=== PATIENT | male | born 1995 | race Caucasian/White ===

== ENCOUNTER 2023-10-22 21:24 | Inpatient (IN) | payer OTHER, SELFPAY ==
[2023-10-22] VITALS (8 sets, daily range): BP systolic 101–123; BP diastolic 64–78; BMI 26.5
--- NOTE | 2023-10-22 13:23 | ED.GENMED ---
History of Present Illness
General
Chief Complaint: Post Operative Problem(s)
Time Seen by Provider: 10/22/23 13:16
Travel History
Have you had any contact with someone who has COVID-19?: No
Do you have any symptoms of coronavirus? Fever > 100 degrees, chills, cough, shortness of breath, sore throat, loss of taste or smell, muscle aches, or headache?: No
History of Present Illness
History of Present Illness:
28-year-old male presents to the emergency department for evaluation of left hip pain. 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
done at [facility]. In early August he began to have hardware migration from the knee and, as he was residing in [facility], established care with an Orthopedist at [facility]. Had initial surgery in August to remove and replace hardware in the knee by
Dr Helm. 1-2 weeks post operatively he developed severe L hip pain and was diagnosed with a post operative infection of both the knee and the hip, and 2 weeks ago underwent complete revision of the L femur prosthesis. He is living locally with
his mom while he undergoes rehab, over the past 3 to 4 days noted increasing pain to where he could no longer bear weight on the left lower extremity. States he has intense pain even with subtle movement of the left hip. No fevers or chills.
Review of Systems
Review of Systems
Allergies reviewed?: Yes
All Other Systems: ROS reviewed and negative except as documented in HPI and ROS
Phy Exam
Physical Exam
Physical Exam:
GEN: Well appearing, NAD, WDWN
HEENT: Oral mucosa moist, no scleral icterus
Cardiac: Tachycardic, regular
Lung: No respiratory distress, no tachypnea
MSK: Left hip incision site is clean and dry with no purulent discharge. There is diffuse swelling about the left hip and excruciating pain to any degree of passive range of motion. There is mild swelling of the left knee, surgical site is clean
and dry with no discharge. No erythema. No pain with range of motion of the left knee
Skin: Good color, no pallor or jaundice, no rashes
Neuro: AO x3, moves all extremities freely
Psych: Calm, cooperative
Course
Orders/Labs/Results
Orders:
Orders
10/22/23 13:23
CR Hip - LT w/wo Pel 2-3 Vw* Urgent
Comment:
Reason For Exam: post operative pain
Include a pelvis x-ray?: No
10/22/23 13:25
Blood Culture Q30M
YOBANI Source: Blood/Venous
Specimen Description:
10/22/23 13:30
HYDROmorphone [Dilaudid] 1 mg .ROUTE .STK-MED ONE
HYDROmorphone [Dilaudid] 1 mg IV NOW STA
10/22/23 13:41
CRP [C-Reactive Protein] Urgent
Complete Blood Count/With Diff Urgent
Comprehensive Metabolic Panel Urgent
ESR [Erythrocyte Sed Rate] Urgent
Lactic Acid Q4H
Comment: CANCEL 2nd LACTIC ACID IF 1st LACTIC ACID IS LESS THAN 2
Blood Culture Q30M
YOBANI Source: Blood/Venous
Specimen Description:
10/22/23 14:06
HYDROmorphone [Dilaudid] 1 mg IV NOW STA
10/22/23 15:30
IRAD CONSULT Urgent
Consulting Provider: Vladimir Bower
Was physician already notified: Yes
Reason for Consult/Procedure: L hip aspiration
Acknowledgement that appropriate orders are entered: Yes
10/22/23 15:44
HYDROmorphone [Dilaudid] 1 mg IV NOW STA
10/22/23 16:42
Lidocaine 2% [Xylocaine 2% Mdv] 20 ml .ROUTE .STK-MED ONE
10/22/23 17:05
Body Fluid Cell Count Urgent
What is the Body Fluid: joint
Date Specimen was Collected: 10/22/23
Time Specimen was Collected: 17:10
Comment: with DIFF, left hip
Fluid Culture with Gram Stain Urgent
YOBANI Source: Joint Fluid
Specimen Description:
Date Specimen was Collected: 10/22/23
Time Specimen was Collected: 17:10
Comment: Left hip
10/22/23 18:05
HYDROmorphone [Dilaudid] 1 mg IV NOW STA
10/22/23 19:55
Piperacillin/Tazo 3.375 Gram [Zosyn] 3.375 gram in 50 ml IV NOW
10/22/23 20:00
VANCOMYCIN Pharmacy to Dose [VANCOCIN Pharmacy to Dose] 1 each Pharmacy To Prepare [Call Pharmacy To Prepare] 0 ml IV PER PROTOCOL
10/22/23 20:34
Vancomycin [Vancocin] 1,750 mg 0.9% Sodium Chloride 500 ml [Nss] 500 ml IV NOW
Abnormal Lab Results
10/22/23
13:41
RBC 3.82 L 10^6/uL
(4.70-6.10)
Hgb 11.2 L g/dL
(13.0-18.0)
Hct 35.2 L %
(39.0-52.0)
MCHC 31.8 L g/dL
(33.0-37.0)
Plt Count 553 H 10^3/uL
(130-400)
Absolute Neuts (auto) 7.6 H 10^3/uL
(1.4-6.5)
Neutrophils % 79.9 H %
(42.2-75.2)
Lymphocytes % 12.4 L %
(20.5-51.1)
ESR 91 H mm/hour
(0-20)
Glucose 106 H mg/dl
(70-99)
ALT 89 H U/L
(0-50)
Alkaline Phosphatase 155 H U/L
(38-126)
C-Reactive Protein 153.20 H mg/L
(0.0-10.00)
10/22/23 13:41
10/22/23 13:41
Vital Signs
Initial and Last Documented VS:
Initial Vital Signs
Pulse Resp BP Pulse Ox
106 22 107/75 100
10/22/23 13:17 10/22/23 13:17 10/22/23 13:17 10/22/23 13:17
Last Documented Vital Signs
Temp Pulse Resp BP Pulse Ox
98.8 F 112 23 112/78 99
10/22/23 16:10 10/22/23 20:15 10/22/23 20:15 10/22/23 20:13 10/22/23 20:15
MDM/Problems Addressed
MDM/Problems Addressed:
28-year-old male presents with severe left hip pain. Recently underwent revision of left femur replacement that was initially done as a child for Castillo sarcoma. Clinical exam concerning for infected hip given severe pain with passive range of
motion. He is not clinically septic and has no elevated white count on labs however inflammatory markers are markedly elevated. Patient was sent for interventional radiology consultation for hip aspiration which yielded 12 cc of cloudy fluid,
fluid analysis revealed a white cell count of 32,000 with no obvious organisms seen. I discussed these findings with the orthopedic team at [facility] in [facility] and they felt that it was appropriate to keep the patient here for empiric IV
antibiotics pending culture data. The patient and family requested transfer to the the [facility], I had a phone consultation with orthopedics and orthopedic oncology at [facility] however the both service lines declined to accept this
patient in transfer. Ultimately he will be admitted to this hospital for pain control and further IV antibiotics pending fluid cultures.
*Critical Care Note
Total Time (30-74mins, 75-104mins- exclusive of procedures): Not Applicable
Update Note
Update Note:
ORTHOPEDIC TEAM AT [facility] CAN BE CONTACTED AT [phone] (MAURIZIO, HOG PUSHER for DR HELM)
ED Attending Note
-
Portions of this chart may have been created with voice recognition software.� Occasional wrong word or��sound alike� substitutions may have occurred due to the inherent limitations of voice recognition software.
Discharge Plan
Departure
Patient Disposition: Admit
Date of Disposition: 10/22/23
Time of Disposition: 20:16
Admit to: Med/Surg
Presentation/result/management discussed w/ accepting MD/DO: Hospitalist
Discharge Problem:
Infected prosthesis of left hip
Prescriptions:
No Action
cyclobenzaprine [Flexeril] 10 mg Tablet
10 mg PO BIDPRN PRN (Reason: spasms)
sennosides [senna] 8.6 mg Tablet
17.2 mg PO HSPRN PRN (Reason: constipation)
acetaminophen [Tylenol] 325 mg Tablet
650 mg PO Q6HPRN PRN (Reason: mild pain)
loperamide 2 mg Capsule
2 mg PO QIDPRN PRN (Reason: diarrhea)
minoxidil 2.5 mg Tablet
2.5 mg PO DAILY
aspirin 81 mg Tablet,Delayed Release (Dr/Ec)
81 mg PO BID
gabapentin 300 mg Capsule
300 mg PO TID
finasteride 1 mg Tablet
1 mg PO DAILY
amoxicillin-pot clavulanate [Augmentin] 875-125 mg Tablet
1 tab PO BID
Patient Comments:
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
oxycodone 5 mg Tablet
5 mg PO Q4HPRN PRN (Reason: severe pain)
escitalopram oxalate [Lexapro] 10 mg Tablet
10 mg PO DAILY
Referrals:
NONE,* [Family Provider] -
Interventions
Interventions:
*Risk Screen - Suicide Last Done: 10/22/23 13:17
*General Assessment Last Done: 10/22/23 13:17
*Neglect/Abuse Screening Last Done: 10/22/23 13:30
ED- Fall Risk Assessment Last Done: 10/22/23 13:30
*ED COVID-19 Vaccine History Last Done: 10/22/23 13:30
ED-Skin Assessment Last Done: 10/22/23 13:30
Discharge Date and Time
Print Language: FRISIAN
[2023-10-22] MEDS: DILAUDID 1 MG IV ×4 (13:35→18:16)
[2023-10-22 13:53] LABS: % Basophils 0.7 % (0-2); % Eosinophils 1.6 % (0-6); % Immature Granulocytes 0.4 % (0-0.5); % Lymphocytes 12.4 % (20.5-51.1); % Neutrophils 79.9 % (42.2-75.2); Absolute Basophils 0.1 10^3/uL (0-0.2); Absolute Eosinophils 0.2 10^3/uL (0-0.7); Absolute Lymphocytes 1.2 10^3/uL (1.2-3.4); Absolute Monocytes 0.5 10^3/uL (0.1-0.6); Absolute Neutrophils 7.6 10^3/uL (1.4-6.5); Hematocrit 35.2 % (39.0-52.0); Hemoglobin 11.2 g/dL (13.0-18.0); Mean Corp Hgb Conc. 31.8 g/dL (33.0-37.0); Mean Corpuscular Hgb 29.3 pg (27.0-31.0); Mean Corpuscular Volume 92.1 fL (80.0-94.0); Mean Platelet Volume 8.1 fL (7.4-10.4); Nucleated Red Blood Cells % 0 % (-); Platelet Count 553 10^3/uL (130-400); Red Blood Cell Count 3.82 10^6/uL (4.70-6.10); White Blood Cell Count 9.5 10^3/uL (4.8-10.8)
[2023-10-22 14:03] LABS: ALT (SGPT) 89 U/L (0-50); AST (SGOT) 47 U/L (17-59); Albumin 3.8 g/dl (3.5-5.0); Alkaline Phosphatase 155 U/L (38-126); Blood Urea Nitrogen 13 mg/dl (9-20); Calcium 9.5 mg/dl (8.4-10.2); Carbon Dioxide 25 mmol/L (22-30); Chloride 102 mmol/L (98-107); Estimated Creatinine Clearance 85 ml/min; Glucose 106 mg/dl (70-99); Potassium 4.7 mmol/L (3.5-5.1); Sodium 137 mmol/L (135-145); Total Bilirubin 0.6 mg/dl (0.2-1.3); Total Protein 7.2 g/dl (6.3-8.2); eGFR > 60.00
[2023-10-22 14:10] LABS: Lactic Acid 1.1 mmol/L (0.7-2.0)
[2023-10-22 14:55] LABS: Erythrocyte Sed Rate 91 mm/hour (0-20)
[2023-10-22 17:53] LABS: Body Fluid Mononuclear 8.6 %; Body Fluid Polymorphonuclear 91.4 %; Body Fluid WBC 32420 /CUMM
[2023-10-22 18:01] LABS: Body Fluid Second Tech EYM
[2023-10-22] MEDS: ZOSYN 50 IV (20:10)
--- NOTE | 2023-10-22 20:18 | HPS.HSE ---
Family Physician
-
Family Physician: * NONE
Chief Complaint
-
L hip pain
History of Present Illness
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
In early August, he noted a prosthesis hardware problem at the knee joint and since he was living [place] at that time, he decided to establish care with an Orthopedist at [facility] (with Dr Helm).
He had the knee prosthesis removed and replaced, but this got infection and spread to the rest of the hardware.
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 This unfortunately likely got infected again.
He c/o severe L hip pain and is no longer able to bear weight.
He is living locally with his mom while undergoing rehab.
He denies to fever/chills or other symptoms.
Medical History
Past Medical History
Past Medical History: Reports Other
Additional Past Medical History:
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
Tendon transfer surgery in distant past
Recent total left hip prosthesis hardware removal and replacement 10/2023
Past Surgical History: Reports Other
Social History
Tobacco: Non-smoker
Alcohol: Occasional
Living: With Family
Family History
Family History: Not pertinent
Allergies / Home Medications
Allergies reflects when Allergies were last updated in [facility].
Home Medications with original date entered in [facility]
Allergy/Medication List:
Allergies
Allergy/AdvReac Type Severity Reaction Status Date / Time
No Known Allergies Allergy Unverified 10/22/23 13:22
Home Medications
acetaminophen 325 mg tablet (Tylenol) 650 mg PO Q6HPRN PRN mild pain 10/22/23
amoxicillin 875 mg-potassium clavulanate 125 mg tablet 1 tab PO BID 10/22/23
aspirin 81 mg tablet,delayed release 81 mg PO BID 10/22/23
cyclobenzaprine 10 mg tablet 10 mg PO BIDPRN PRN spasms 10/22/23
escitalopram oxalate 10 mg tablet (Lexapro) 10 mg PO DAILY 10/22/23
finasteride 1 mg tablet 1 mg PO DAILY hair growth 10/22/23
gabapentin 300 mg capsule 300 mg PO TID 10/22/23
loperamide 2 mg capsule 2 mg PO QIDPRN PRN diarrhea 10/22/23
minoxidil 2.5 mg tablet 2.5 mg PO DAILY 10/22/23
oxycodone 5 mg tablet 5 mg PO Q4HPRN PRN severe pain 10/22/23
sennosides 8.6 mg tablet (senna) 17.2 mg PO HSPRN PRN constipation 10/22/23
Review of Systems
-
Musculoskeletal: Reports See HPI and Joint Pain (L hip pain)
Physical Exam
Vital Signs
Vital Signs
Temp Pulse Resp BP Pulse Ox
37.1 C 124 18 123/71 99
10/22/23 16:10 10/22/23 18:45 10/22/23 18:45 10/22/23 17:25 10/22/23 17:22
Physical Exam
General: Well Developed, Well Nourished, No Apparent Distress, Comfortable and Conversant
HEENT: NormoCephalic, Moist mucous membranes and Atraumatic
Respiratory: Clear and Non Labored Respirations; No Accessory Resp Muscle Use
Cardiac: S1/S2 and Regular Rhythm; No Murmur or Rub
GI: Soft, Non Tender, Non Distended and Normal Bowel Sounds; No Organomegaly
Rectal: Deferred by Provider
Musculoskeletal: No Clubbing, No Cyanosis and No Edema
Skin: No Rash
Neuro: Awake
Psych: Calm and Intact Judgment/Insight
Laboratory Results
-
10/22/23 13:41
10/22/23 13:41
Laboratory Results
Lactic Acid 1.1 mmol/L (0.7-2.0) 10/22/23 13:41
Lactic Acid Cancelled 10/22/23 13:41
Total Bilirubin 0.6 mg/dl (0.2-1.3) 10/22/23 13:41
AST 47 U/L (17-59) 10/22/23 13:41
ALT 89 U/L (0-50) H 10/22/23 13:41
Alkaline Phosphatase 155 U/L (38-126) H 10/22/23 13:41
Data Reviewed
-
Lab Data: Labs Reviewed by me
Impression/Plan
-
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
In early August, he noted a prosthesis hardware problem at the L knee joint and since he was living in [place] at that time, he decided to establish care with Orthopedist at [facility] (with Dr Helm).
He had the L knee prosthesis removed and replaced, but this got infection and spread to the rest of the hardware.
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 This unfortunately likely got infected again.
He c/o severe L hip pain and is no longer able to bear weight.
He is living locally with his mom while undergoing rehab.
He denies to fever/chills or other symptoms.
ER contacted his orthopedic surgeon from [place], and was recommended to continue IV antibiotic.
The patient showed desire to be transferred to [place], however [place] indicated no need for transfer at this moment given management would not be different at .
ORTHOPEDIC TEAM AT [facility] CAN BE CONTACTED AT [phone] (MAURIZIO, ARCHITECTURAL DRAFTING INSTRUCTOR for DR HELM)
A/P:
# L femur prosthesis infection
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
# Distant history of Castillo's Sarcoma of the L femur with complete femur/proximal tibia removal done at [facility]
Joint fluid aspirated on 10/21 noted WBC 32k
Follow joint fluid culture and blood Cx
status post Vanco/Zosyn in ED, continue both
ID consult
DVT ppx: Lovenox SQ
FC
[2023-10-22] MEDS: VANCOCIN 535 MG IV (21:10)
[2023-10-22] MEDS: MORPHINE SULFATE 2 MG IV (21:47)
[2023-10-22] MEDS: NEURONTIN 300 MG PO (21:47)
--- NOTE | 2023-10-22 22:05 | PHA.VAN.IN ---
Assessment
- Assessment
Renal Function: Unknown baseline
Concomitant Antimicrobials: ZOSYN
- Previous Dosing Experience
Previous Regimen: NONE
AUC Dosing Plan
- Dosing Variables
Dosing Weight (kg): 72.1
Dosing CrCl (ml/min): 85
Vd coefficient (L/kg): 0.7
- Empiric Dosing
Initial / Loading Dose: 1750MG
Maintenance Regimen: 500MG IV Q8H
Estimated AUC (mcg*h/mL): 411
Estimated Peak (mcg*h/mL): 22
Estimated Trough (mcg/ml): 13
Estimated Half Life (H): 9.2
Pharmacokinetics Vancomycin I
- -
Patient Age: 28
Patient Sex: Male
Vancomycin Day #: 1
Indication: Other ([L] FEMUR PROSTHESIS INFECTION)
Requesting Provider: IGOR
Height / Weight:
Height 5 ft 5 in
Actual Weight 72.1 kg
- Vital Signs / Lab Results
Temp Pulse Resp BP Pulse Ox
98.8 F 112 14 112/78 98
10/22/23 16:10 10/22/23 21:00 10/22/23 21:00 10/22/23 20:13 10/22/23 21:00
Lab Results - Hematology
10/22/23
13:41
WBC 9.5
Lab Results - Chemistry
10/22/23
13:41
BUN 13
Creatinine 1.1
Estimated Creat Clear 85
Albumin 3.8
10/22/23 10/22/23
13:41 13:41
Lactic Acid 1.1 Cancelled
Microbiology Results
10/22/23 17:05 Gram Stain - Preliminary
Joint Fluid
[2023-10-22] MEDS: MELATONIN 5 MG PO (23:55)
[2023-10-23] MEDS: ROXICODONE 5 MG PO ×4 (01:04→22:22)
[2023-10-23 01:14] VITALS: BP 110/68; BMI 26.7
[2023-10-23] MEDS: ZOSYN 50 IV ×2 (01:33→09:02)
[2023-10-23] MEDS: MORPHINE SULFATE 2 MG IV ×3 (01:56→12:32)
[2023-10-23] MEDS: VANCOCIN HCL 500 MG 100 IV (06:17)
[2023-10-23 06:42] LABS: % Basophils 0.8 % (0-2); % Immature Granulocytes 0.6 % (0-0.5); % Lymphocytes 23.1 % (20.5-51.1); % Monocytes 7.3 % (1.7-9.3); % Neutrophils 65.2 % (42.2-75.2); Absolute Basophils 0.1 10^3/uL (0-0.2); Absolute Eosinophils 0.3 10^3/uL (0-0.7); Absolute Immature Granulocytes 0.1 10^3/uL (0-0.05); Absolute Lymphocytes 1.9 10^3/uL (1.2-3.4); Absolute Monocytes 0.6 10^3/uL (0.1-0.6); Absolute Neutrophils 5.4 10^3/uL (1.4-6.5); Hematocrit 28.9 % (39.0-52.0); Hemoglobin 9.5 g/dL (13.0-18.0); Mean Corp Hgb Conc. 32.9 g/dL (33.0-37.0); Mean Corpuscular Hgb 29.5 pg (27.0-31.0); Mean Corpuscular Volume 89.8 fL (80.0-94.0); Mean Platelet Volume 8.2 fL (7.4-10.4); Nucleated Red Blood Cells % 0 % (-); Platelet Count 488 10^3/uL (130-400); Red Blood Cell Count 3.22 10^6/uL (4.70-6.10); Red Cell Dist. Width 12.7 % (11.5-14.5); White Blood Cell Count 8.3 10^3/uL (4.8-10.8)
[2023-10-23 07:11] LABS: Blood Urea Nitrogen 12 mg/dl (9-20); Calcium 9.1 mg/dl (8.4-10.2); Carbon Dioxide 20 mmol/L (22-30); Chloride 107 mmol/L (98-107); Estimated Creatinine Clearance 94 ml/min; Glucose 100 mg/dl (70-99); Magnesium 2.5 mg/dl (1.6-2.3); Sodium 137 mmol/L (135-145); eGFR > 60.00
--- NOTE | 2023-10-23 07:11 | PTCARENOTE ---
Patient arrived on unit @0107 via stretcher, pulled over with assist x3. Patient AAOX3, wearing immobilizer to left leg with c/o 7/10 pain. Skin assessment completed, dressing observed to left inner thigh. Patient stated dressing is original s/p
surgical procedure. Patient oriented to unit, call cates within reach.
[2023-10-23 07:48] VITALS: BP 104/59
--- NOTE | 2023-10-23 08:34 | PHA.VAN.FU ---
Vancomycin Assessment / Plan
- Assessment
Renal Function: Stable
WBC's are: WNL
In the past 24 hrs, patient has been: Afebrile
Concomitant Antimicrobials: piperacillin/tazobactam
- Dosing Plan
Adjust Regimen to: Vanc 1000mg Q12H starting at 1800
New Regimen Predicts: AUC (494), Peak (31), Trough (12.6)
- Monitoring Plan
No level(s) ordered at this time: consider levels in next few days
- Follow Up
Pharmacy will continue to follow.
Vancomycin Follow UP
- -
Patient Age: 28
Patient Sex: Male
Vancomycin Day #: 2
Indication: Other
Requesting Provider: Dr. Thomason
Pertinent Antimicrobial Allergies:
NKDA
Height / Weight:
Height 5 ft 5 in
Actual Weight 72.802 kg
- Vital Signs / Lab Results
Temp Pulse Resp BP Pulse Ox
97.8 F 94 16 104/59 98
10/23/23 07:48 10/23/23 07:48 10/23/23 07:48 10/23/23 07:48 10/23/23 07:48
Lab Results - Hematology
10/22/23 10/23/23
13:41 06:12
WBC 9.5 8.3
Lab Results - Chemistry
10/22/23 10/23/23
13:41 06:12
BUN 13 12
Creatinine 1.1 1.0
Estimated Creat Clear 85 94
Albumin 3.8
10/22/23 10/22/23
13:41 13:41
Lactic Acid 1.1 Cancelled
Microbiology Results
10/22/23 17:05 Gram Stain - Preliminary
Joint Fluid
[2023-10-23] MEDS: LEXAPRO PO ×2 (09:02→09:12)
[2023-10-23] MEDS: NEURONTIN 300 MG PO ×3 (09:02→22:23)
[2023-10-23] MEDS: LONITEN PO ×2 (09:02→09:12)
[2023-10-23] MEDS: ASPIR LOW (ENTERIC COATED) 81 MG PO (09:02)
--- NOTE | 2023-10-23 11:13 | CON.ID ---
Consultation
-
Date/Time Consultation Requested: 10/22/20232127
Date/Time Consultation Performed: 10/23/2023 1040
Requesting Provider: Dr. Thomason
Performing Provider: Dr. Fontanez
Reason for Consultation: Left leg hardware infection
Chief Complaint / Past History
History of Present Illness
Kei Shaver is a 28-year-old man being evaluated at the request of Dr. Thomason in regards to left leg infection. History is obtained from chart review, along with patient interview.
The patient has a history of Castillo sarcoma at age 12 of the left femur, and underwent a proximal tibia/femur removal at [facility]. He reports that he did well in the intervening years, but in late August 2023 he began to develop some left knee pain. He
reports that there was some 'pieces' that had broken off. He has been living in the [facility], and was seen by Orthopedics there. He underwent revision of the left knee in early August, but reports the leg subsequently became infected,
and he underwent revision of the entire leg hardware on 10/05/2023. He reports he was on IV antibiotics for period of time, but was ultimately discharged to home on a prolonged course of Augmentin, to be taken for at least a year. He came back to
the local area to be with his parents during his rehab., And notes that over the past several days he has had marked increase in discomfort in the left hip area prompting visitation to the ER here at [facility]. Since admission he has
undergone aspiration of the left hip area which showed significant white count, and has been started on empiric antibiotics.
He reports the pain in his left hip is similar to when he was infected in the past. He has not had any fevers or chills. He denies any difficulty with his prior incisional areas.
Past History
Additional Past Medical History:
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
Additional Past Surgical History:
Left femur/proximal tib-fib removal (at 12 years old; [facility])
Left knee revision (September 2023)
Left leg hardware removal/replacement (10/05/2023; [facility])
Allergy History:
No Known Allergies Allergy (Unverified 10/22/23 13:22)
Medications Reviewed: Yes
Current Antibiotics:
Zosyn
Vancomycin
Social History
Tobacco: Non-Smoker
Alcohol: Occasional
Drug: None
Personal: Single
Living: With Family
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
Family History
Family History: Not Pertinent
Review of Systems
Vital Signs
Temp Pulse Resp BP Pulse Ox
97.8 F 94 16 104/59 98
10/23/23 07:48 10/23/23 07:48 10/23/23 07:48 10/23/23 07:48 10/23/23 07:48
Physical Exam
Physical Exam
Constitutional: No Acute Distress, Well Developed, Comfortable and Non-toxic
Head: Normocephalic
Eyes: Pupils Equal, Pupils Round, No Conjunctival Hemorrhage and Sclera Anicteric
Pharynx: Benign
Oral: No Thrush and No Ulcers
Cardiovascular: Regular Rate and S1/S2; Negative S3/S4
Pulmonary: Clear; Negative Wheezes, Rales or Rhonchi
Gastrointestinal: Soft, Non Tender, Non Distended, Normal Bowel Sounds, No Rebound and No Guarding
Extremities: Negative Edema, Cyanosis or Erythema
Musculoskeletal: Negative Joint Swelling or Joint Effusion
Skin: Warm and Dry; Negative Rash or Jaundice
Neurological: Awake, Alert and Oriented
Psychological: Calm
.
Lab / Diagnostic Study Results
10/23/23 06:12
10/23/23 06:12
Abs Immat Gran (auto) 0.1 10^3/uL (0-0.05) H 10/23/23 06:12
Absolute Neuts (auto) 5.4 10^3/uL (1.4-6.5) 10/23/23 06:12
Absolute Lymphs (auto) 1.9 10^3/uL (1.2-3.4) 10/23/23 06:12
Absolute Monos (auto) 0.6 10^3/uL (0.1-0.6) 10/23/23 06:12
Absolute Basos (auto) 0.1 10^3/uL (0-0.2) 10/23/23 06:12
Immature Gran % 0.6 % (0-0.5) H 10/23/23 06:12
Neutrophils % 65.2 % (42.2-75.2) 10/23/23 06:12
Lymphocytes % 23.1 % (20.5-51.1) 10/23/23 06:12
Monocytes % 7.3 % (1.7-9.3) 10/23/23 06:12
Eosinophils % 3.0 % (0-6) 10/23/23 06:12
Basophils % 0.8 % (0-2) 10/23/23 06:12
ESR 91 mm/hour (0-20) H 10/22/23 13:41
Lactic Acid 1.1 mmol/L (0.7-2.0) 10/22/23 13:41
Lactic Acid Cancelled 10/22/23 13:41
C-Reactive Protein 153.20 mg/L (0.0-10.00) H 10/22/23 13:41
Microbiology Results
Micro:
10/22/23 17:05 Body Fluid Culture - Pending
Joint Fluid Gram Stain - Preliminary
10/22/23 13:25 Blood Culture - Pending
Blood/Venous
10/22/23 13:41 Blood Culture - Pending
Blood/Venous
Imaging:
10/22/2023 Plain film left hip: No findings to suggest acute fracture or dislocation. The bones of the pelvis are intact. There is a total left hip and femur replacement with ORIF. The acetabular component is in the expected location.
Assessment / Plan
Left hip pain
Hx left leg hardware infection
- presumably on suppressive Augmentin
Thrombocytosis
Elevated ESR
Elevated CRP
Recommendations:
Given prior discharge on Augmentin, will transition to Unasyn which would provide IV equivalency.
Obtain old records from outside hospital to review for microbiology and hospital course.
Follow white count and temperature curve.
Await pending cultures.
Care Review
Plan reviewed with: Physician (Hospitalist)
[2023-10-23] MEDS: UNASYN IV ×2 (12:32→17:07)
--- NOTE | 2023-10-23 13:02 | W.PN.HOSP.TC ---
Today's Communication/Plan
-
monitor vitals
see plan
pain control
abx
records from [place] requested
Check iron panel, B12, folate
Assessment / Plan
Assessment / Plan
General: Well Developed, Well Nourished, No Apparent Distress, Comfortable and Conversant
HEENT: NormoCephalic, Moist mucous membranes and Atraumatic
Respiratory: Clear and Non Labored Respirations
Cardiac: S1/S2 and Regular Rhythm; No Murmur or Rub
GI: Soft, Non Tender, Non Distended and Normal Bowel Sounds
Musculoskeletal: Left knee immobilizer
Neuro: Awake
Psych: Calm and Intact Judgment/Insight
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
In early August, he noted a prosthesis hardware problem at the L knee joint and since he was living in [place] at that time, he decided to establish care with Orthopedist at [facility] (with Dr Helm).
He had the L knee prosthesis removed and replaced, but this got infection and spread to the rest of the hardware.
He had a follow up surgery (2 weeks ANKLE PATCH MOLDER) to remove and replace the entire hardware/ L femur prosthesis. This unfortunately likely got infected again.
He c/o severe L hip pain and is no longer able to bear weight.
He is living locally with his mom while undergoing rehab.
He denies to fever/chills or other symptoms.
ER contacted his orthopedic surgeon from [place], and was recommended to continue IV antibiotic.
The patient showed desire to be transferred to [place], however [place] indicated no need for transfer at this moment given management would not be different at .
ORTHOPEDIC TEAM AT [facility] CAN BE CONTACTED AT [phone] (MAURIZIO CONSTRUCTION PRODUCER for DR HELM)
A/P:
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
# recent complete revision of the L femur prosthesis, 2 weeks ANKLE PATCH MOLDER on october 04
# Distant history of Castillo's Sarcoma of the L femur with complete femur/proximal tibia removal done at [facility]
Joint fluid aspirated on 10/21 noted WBC 32k; gram stain without organism however patient was already on Augmentin. ID following. Switched antibiotics to unasyn
Follow joint fluid culture and blood Cx
Spoke with Dr. Helm 10/22 and he currently does not recommend stitches to be taken out. He wants patient to follow up with him eventually once it settles down with abx for possible another revision.
Depression
cw lexapro; hold BID asa since on lovenox since he was taking ASA for DVT ppx after surgery
Anemia
denies any active bleeding; suspect 2/2 recent surgery
check iron panel,b12,folate
monitor hgb
Mild LFT elevation
Monitor
DVT ppx: Lovenox SQ
Full code
Anticipated Discharge: > 48 hours
Subjective/Interval History
-
Date of Service: October 23, 2023
has pain
Objective Data
-
Labs:
Laboratory Results
10/23/23
06:12
WBC 8.3
Hgb 9.5 L
Hct 28.9 L
Plt Count 488 H
Sodium 137
Potassium 4.0
Chloride 107
Carbon Dioxide 20 L
BUN 12
Creatinine 1.0
Glucose 100 H
Calcium 9.1
Vital Signs:
Vital Signs
Temp Pulse Resp BP Pulse Ox
97.8 F 94 16 104/59 98
10/23/23 07:48 10/23/23 07:48 10/23/23 07:48 10/23/23 07:48 10/23/23 07:48
I&O
10/22/23 10/23/23 10/24/23
06:59 06:59 06:59
Intake Total 390 / 390
Output Total 750 / 750
Balance -360 / -360
[2023-10-23 13:51] LABS: Iron 21 ug/dl (49-181)
[2023-10-23 14:00] LABS: Percent Saturation 10 % (20-50); Total Iron Binding Capacity 192 ug/dl (261-462)
[2023-10-23] MEDS: DILAUDID 0.5 MG IV ×3 (14:21→23:30)
[2023-10-23 15:37] VITALS: BP 121/77
[2023-10-23] MEDS: LOVENOX 40 MG SC (17:07)
[2023-10-23] MEDS: TYLENOL 650 MG PO (17:08)
[2023-10-23 17:09] LABS: Folate 4.7 ng/ml (2.76-20); Vitamin B12 671 pg/ml (239-931)
[2023-10-23] MEDS: IMODIUM 2 MG PO (20:10)
[2023-10-23 23:00] VITALS: BP 112/70
[2023-10-24] MEDS: MELATONIN 5 MG PO (00:23)
[2023-10-24] MEDS: UNASYN IV ×2 (00:23→05:48)
[2023-10-24] MEDS: DILAUDID 0.5 MG IV ×2 (05:57→16:32)
[2023-10-24 06:20] LABS: % Eosinophils 5.9 % (0-6); % Immature Granulocytes 0.5 % (0-0.5); % Lymphocytes 33.7 % (20.5-51.1); % Monocytes 8.5 % (1.7-9.3); % Neutrophils 50.4 % (42.2-75.2); Absolute Basophils 0.1 10^3/uL (0-0.2); Absolute Eosinophils 0.3 10^3/uL (0-0.7); Absolute Monocytes 0.5 10^3/uL (0.1-0.6); Absolute Neutrophils 2.9 10^3/uL (1.4-6.5); Hematocrit 31.3 % (39.0-52.0); Hemoglobin 10.3 g/dL (13.0-18.0); Mean Corp Hgb Conc. 32.9 g/dL (33.0-37.0); Mean Corpuscular Hgb 29.5 pg (27.0-31.0); Mean Corpuscular Volume 89.7 fL (80.0-94.0); Mean Platelet Volume 8.1 fL (7.4-10.4); Nucleated Red Blood Cells % 0 % (-); Platelet Count 427 10^3/uL (130-400); Red Blood Cell Count 3.49 10^6/uL (4.70-6.10); Red Cell Dist. Width 12.7 % (11.5-14.5); White Blood Cell Count 5.8 10^3/uL (4.8-10.8)
[2023-10-24 06:42] LABS: ALT (SGPT) 69 U/L (0-50); AST (SGOT) 38 U/L (17-59); Albumin 3.1 g/dl (3.5-5.0); Alkaline Phosphatase 124 U/L (38-126); Blood Urea Nitrogen 10 mg/dl (9-20); Calcium 9.3 mg/dl (8.4-10.2); Carbon Dioxide 24 mmol/L (22-30); Chloride 105 mmol/L (98-107); Estimated Creatinine Clearance 104 ml/min; Glucose 96 mg/dl (70-99); Potassium 4.2 mmol/L (3.5-5.1); Sodium 138 mmol/L (135-145); Total Bilirubin 0.4 mg/dl (0.2-1.3); eGFR > 60.00
[2023-10-24 07:52] VITALS: BP 105/57
[2023-10-24] MEDS: LONITEN 2.5 MG PO (08:46)
[2023-10-24] MEDS: NEURONTIN 300 MG PO ×3 (08:46→22:09)
[2023-10-24] MEDS: LEXAPRO 10 MG PO (08:46)
--- NOTE | 2023-10-24 09:41 | W.PN.ID1 ---
Date of Service
Date of Service: October 24, 2023
Today's Communication
Continue antibiotics. See below�
Assessment / Plan
Left hip pain
Hx left leg hardware infection
- presumably on suppressive Augmentin
Thrombocytosis
Elevated ESR
Elevated CRP
Recommendations:
Records requested send to [facility] yesterday, but have not received any records as of the present.
I spoke directly with the microbiology department at [facility], and received intraoperative culture results, which are noted below.
Citrobacter koseri recovered.
Transition to cefazolin 2 g IV every 8 hours.
I had a long discussion with the patient and his mother. Patient would likely best benefit from a course of IV antibiotics, at least until he can get back to his Orthopedic physician at [facility].
Case discussed extensively with Hospitalist. CT of the hip to be performed to assess for any possible collection.
Will place PICC. Will place home infusion sheet on paper chart.
Outpatient follow-up in 2 weeks.
����������������������������������������������������������
Chief Complaint
-: Other (Left hip/leg hardware infection)
Subjective / Review of Systems
Patient seen and examined. Still with left hip pain. No fevers or chills.
Vital Signs / Physical Exam
Vital Signs
Vital Signs
Temp Pulse Resp BP Pulse Ox
97.9 F 77 16 105/57 99
10/24/23 07:52 10/24/23 08:46 10/24/23 07:52 10/24/23 08:46 10/24/23 07:52
Physical Exam
Constitutional: No Acute Distress, Comfortable and Non-toxic
Eyes: Sclera Anicteric
Cardiovascular: S1/S2; Negative S3/S4
Pulmonary: Non Labored
Gastrointestinal: Soft, Non Tender and Non Distended
Extremities: Edema (trace); Negative Erythema
Neurological: Awake and Alert
Psychological: Calm
Objective Data
Lab Data
Lab Results
10/24/23 05:51
10/24/23 05:51
ESR 91 mm/hour (0-20) H 10/22/23 13:41
Estimated Creat Clear 104 ml/min 10/24/23 05:51
Lactic Acid 1.1 mmol/L (0.7-2.0) 10/22/23 13:41
Lactic Acid Cancelled 10/22/23 13:41
Total Bilirubin 0.4 mg/dl (0.2-1.3) 10/24/23 05:51
AST 38 U/L (17-59) 10/24/23 05:51
ALT 69 U/L (0-50) H 10/24/23 05:51
Alkaline Phosphatase 124 U/L (38-126) 10/24/23 05:51
C-Reactive Protein 153.20 mg/L (0.0-10.00) H 10/22/23 13:41
Most recent labs reviewed.
Micro Results:
10/22/23 13:41 Blood Culture - Preliminary
Blood/Venous No Growth in 24 hours- Final report to follow
10/22/23 13:25 Blood Culture - Preliminary
Blood/Venous No Growth in 24 hours- Final report to follow
10/22/23 17:05 Body Fluid Culture - Preliminary
Joint Fluid No Growth After 18-24 Hours
Gram Stain - Preliminary
Cultures from [facility]
10/05/2023 Culture, periprosthetic left knee
Citrobacter koseri
Ampicillin >16 Resistant
Ampicillin/sulbactam 4/2 Susceptible
Aztreonam <=2 Susceptible
Cefazolin <=1 Susceptible
Cefepime <=1 Susceptible
Ceftazidime <=2 Susceptible
Ceftriaxone <=1 Susceptible
Ciprofloxacin <=0.25 Susceptible
Ertapenem <=0.25 Susceptible
Gentamicin <=2 Susceptible
Levofloxacin <=0.5 Susceptible
Meropenem <=0.5 Susceptible
Piperacillin/tazobactam 4/4 Susceptible
Tobramycin <=2 Susceptible
Trimethoprim/sulfa <=0.5/9.5 Susceptible
Imaging:
10/22/2023 Plain film left hip: No findings to suggest acute fracture or dislocation. The bones of the pelvis are intact. There is a total left hip and femur replacement with ORIF. The acetabular component is in the expected location.
Care Review
Plan reviewed with: Physician (Hospitalist) and Other (Total time spent today was 55 min., which includes prep for the visit, gathering pertinent data, patient interview and exam, reviewing pertinent studies including lab evaluations, microbiology,
radiology, hospital records, specialist consultation, along with counseling and coordination of care.)
[2023-10-24] MEDS: TYLENOL 1000 MG PO ×3 (10:52→22:09)
[2023-10-24] MEDS: IMODIUM 2 MG PO (10:52)
--- NOTE | 2023-10-24 11:42 | W.PN.HOSP.TC ---
Today's Communication/Plan
-
Monitor vitals
See plan
CT left femur without any abscess
Start OxyContin, standing Tylenol for pain
Laxatives
pt/ot
Assessment / Plan
Assessment / Plan
General: Well Developed, Well Nourished, No Apparent Distress, Comfortable and Conversant
HEENT: NormoCephalic, Moist mucous membranes and Atraumatic
Respiratory: Clear and Non Labored Respirations
Cardiac: S1/S2 and Regular Rhythm; No Murmur or Rub
GI: Soft, Non Tender, Non Distended and Normal Bowel Sounds
Musculoskeletal: Left knee immobilizer
Neuro: Awake
Psych: Calm and Intact Judgment/Insight
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
In early August, he noted a prosthesis hardware problem at the L knee joint and since he was living in [place] at that time, he decided to establish care with Orthopedist at [facility] (with Dr Helm).
He had the L knee prosthesis removed and replaced, but this got infection and spread to the rest of the hardware.
He had a follow up surgery (2 weeks COVER MAT MACHINE OPERATOR) to remove and replace the entire hardware/ L femur prosthesis. This unfortunately likely got infected again.
He c/o severe L hip pain and is no longer able to bear weight.
He is living locally with his mom while undergoing rehab.
He denies to fever/chills or other symptoms.
ER contacted his orthopedic surgeon from [place], and was recommended to continue IV antibiotic.
The patient showed desire to be transferred to [place], however [place] indicated no need for transfer at this moment given management would not be different at .
ORTHOPEDIC TEAM AT [facility] CAN BE CONTACTED AT [phone] (MAURIZIO METAL SORTER for DR HELM)
A/P:
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
# recent complete revision of the L femur prosthesis, 2 weeks COVER MAT MACHINE OPERATOR on october 04
# Distant history of Castillo's Sarcoma of the L femur with complete femur/proximal tibia removal done at [facility]
Joint fluid aspirated on 10/21 noted WBC 32k; gram stain without organism however patient was already on Augmentin. ID following. Switched antibiotics to unasyn
Follow joint fluid culture and blood Cx
Still awaiting records however Dr. Fontanez from infectious disease spoke with microbiology department at [facility] and received intraoperative culture resulting in Citrobacter koseri
given patient's uncontrolled pain, started oxycontin,tylenol. dilaudid prn for breakthrough. CT scan 10/23 doesnt show any fx. lucency appears to be from spacer. some soft tissue swelling. no signs of abscess
Spoke with Dr Fontanez and will treat with IBV abx outpatient and patient will follow-up with orthopedics at [place]
PT/OT. Patient is weightbearing as tolerated with crutches
Spoke with Dr. Helm 10/22 and he currently does not recommend stitches to be taken out. He wants patient to follow up with him eventually once it settles down with abx for possible another revision.
Constipation
Laxatives
Depression
cw lexapro; hold BID asa since on lovenox since he was taking ASA for DVT ppx after surgery
Anemia
denies any active bleeding; suspect 2/2 recent surgery
good iron stores. monitor
Mild LFT elevation
Monitor
DVT ppx: Lovenox SQ
Full code
I spent a total of 52 minutes with the patient or on the floor. More than 50% of this time involved counseling and coordination of care.
Anticipated Discharge: Within 24 hours
Subjective/Interval History
-
Date of Service: October 24, 2023
still in pain
Objective Data
-
Labs:
Laboratory Results
10/24/23
05:51
WBC 5.8
Hgb 10.3 L
Hct 31.3 L
Plt Count 427 H
Sodium 138
Potassium 4.2
Chloride 105
Carbon Dioxide 24
BUN 10
Creatinine 0.9
Glucose 96
Calcium 9.3
Total Bilirubin 0.4
AST 38
ALT 69 H
Alkaline Phosphatase 124
Vital Signs:
Vital Signs
Temp Pulse Resp BP Pulse Ox
97.9 F 77 16 105/57 99
10/24/23 07:52 10/24/23 08:46 10/24/23 07:52 10/24/23 08:46 10/24/23 10:19
I&O
10/23/23 10/24/23 10/25/23
06:59 06:59 06:59
Intake Total 390 / 390 1020 / 1820 800 / 800
Output Total 750 / 750 800 / 2100 1300 / 1300
Balance -360 / -360 220 / -280 -500 / -500
[2023-10-24] MEDS: ANCEF 10 IV ×2 (12:22→19:53)
[2023-10-24] MEDS: OXYCONTIN (CONTROLLED RELEASE) 15 MG PO ×2 (12:22→23:13)
[2023-10-24 15:15] VITALS: BP 114/76; PULSE 96; O2SAT 96
[2023-10-24 15:49] VITALS: BP 114/76; PULSE 99; O2SAT 96
--- NOTE | 2023-10-24 16:04 | PTOTSP ---
PATIENT ABLE TO FUNCTION INDEPENDENTLY ON LEVEL SURFACES WELL CURB ELEVATION. PLANS TO STAY WITH PARENTS ON THE FIRST FLOOR OF THEIR HOME FOR A 'FEW DAYS' PRIOR TO RETURNING TO D.C AREA. PATIENT FEELS HE IS MOBILIZING AT HIS BASELINE
REQUIRING NO FURTHER ACUTE CARE SKILLED P.T. AT THIS TIME. WILL DISCHARGE FROM P.T. SERVICES. HAYLIE TEXTED PATIENT'S STATUS WITH RN AND ATTENDING.
--- NOTE | 2023-10-24 16:55 | CM ---
Spoke to patient to discuss home IV antibiotics. Referral faxed and accepted by Symone at [facility]. Friday Atia will be covering [facility] at phone [phone].
Patient will go home to his parents where he was admitted from. He had surgery on his femur in [facility] where he lives. HE came to rehab at his parents home. THeir home has one small step in. He will stay on first floor. He cannot shower due
to his surgeries. He sponge bathes. He did PT and OT today. HE was up using crutches in room on his own.
CM faxed PICC, chest xray, face sheet , script for IV antibx, H & P, ID notes to [facility].
Parents address if [address] [place] [id number].
PCP Locally is Butch Corbin.
Local pharmacy is [facility] on [place], [place]
Dr. Fontanez wrote script for antibx and labs to be done.
Dr. Llamas updated that patient needs to be home around noon tomorrow to start training at home by [facility] and start dosing at home.
CM asked [facility] to get drug to home by [place] and Symone who I spoke to today thought drug could be sent to house tomorrow. CM to check with Atia at [facility] phone [phone] Friday morning.
PLan to parents home with [facility].
[2023-10-24] MEDS: LOVENOX 40 MG SC (17:12)
[2023-10-24] MEDS: ROXICODONE 5 MG PO (19:57)
[2023-10-24 23:04] VITALS: BP 132/75
[2023-10-25] MEDS: DILAUDID 0.5 MG IV (03:13)
[2023-10-25] MEDS: ANCEF 10 IV (04:46)
[2023-10-25 05:25] LABS: % Basophils 0.8 % (0-2); % Eosinophils 5.4 % (0-6); % Immature Granulocytes 0.3 % (0-0.5); % Lymphocytes 40.6 % (20.5-51.1); % Monocytes 7.4 % (1.7-9.3); % Neutrophils 45.5 % (42.2-75.2); Absolute Basophils 0.1 10^3/uL (0-0.2); Absolute Eosinophils 0.3 10^3/uL (0-0.7); Absolute Lymphocytes 2.4 10^3/uL (1.2-3.4); Absolute Monocytes 0.4 10^3/uL (0.1-0.6); Absolute Neutrophils 2.7 10^3/uL (1.4-6.5); Mean Corp Hgb Conc. 33.3 g/dL (33.0-37.0); Mean Corpuscular Hgb 29.7 pg (27.0-31.0); Mean Platelet Volume 8.2 fL (7.4-10.4); Nucleated Red Blood Cells % 0 % (-); Platelet Count 426 10^3/uL (130-400); Red Blood Cell Count 3.37 10^6/uL (4.70-6.10); Red Cell Dist. Width 12.4 % (11.5-14.5)
[2023-10-25 05:46] LABS: ALT (SGPT) 48 U/L (0-50); AST (SGOT) 33 U/L (17-59); Albumin 3.3 g/dl (3.5-5.0); Alkaline Phosphatase 119 U/L (38-126); Blood Urea Nitrogen 13 mg/dl (9-20); Calcium 9.3 mg/dl (8.4-10.2); Carbon Dioxide 24 mmol/L (22-30); Chloride 103 mmol/L (98-107); Estimated Creatinine Clearance 94 ml/min; Glucose 89 mg/dl (70-99); Potassium 4.1 mmol/L (3.5-5.1); Sodium 136 mmol/L (135-145); Total Bilirubin 0.5 mg/dl (0.2-1.3); Total Protein 6.2 g/dl (6.3-8.2); eGFR > 60.00
[2023-10-25 07:31] VITALS: BP 121/68
[2023-10-25] MEDS: NEURONTIN 300 MG PO (07:55)
[2023-10-25] MEDS: LONITEN 2.5 MG PO (07:55)
[2023-10-25] MEDS: OXYCONTIN (CONTROLLED RELEASE) 15 MG PO (07:55)
[2023-10-25] MEDS: LEXAPRO 10 MG PO (07:56)
[2023-10-25] MEDS: TYLENOL 1000 MG PO (07:56)
--- NOTE | 2023-10-25 10:07 | W.PN.ID1 ---
Date of Service
Date of Service: October 25, 2023
Today's Communication
DC home.
Assessment / Plan
Relapse Left femur hardware infection
Acute Left hip pain - improving.
Hx left leg hardware infection
Recent revision at OSH, dc'd home presumably on suppressive Augmentin
Thrombocytosis
Elevated ESR
Elevated CRP
Recommendations:
Records requested send to [facility] yesterday, but have not received any records as of the present.
spoke directly with the microbiology department at [facility], and received intraoperative culture results, which are noted below.
Citrobacter koseri (pansnsitive) recovered.
10/21 IR hip aspiration here culture: GNR
Suspect Citrobacter as previous
Continue cefazolin 2 g IV every [address] Fontanez had a long discussion with the patient and his mother. Patient would likely best benefit from a course of IV antibiotics, at least until he can get back to his Orthopedic physician at [facility].
Case discussed extensively with Hospitalist. CT of the hip to be performed to assess for any possible collection.
PICC placed.
Can dc home on IV cefazolin today. Will follow final hip culture. If IV abx needs to be changed, will arrange outpatient.
Outpatient follow-up in [address] Fontanez
����������������������������������������������������������
Chief Complaint
-: Other (Left hip/leg hardware infection)
Subjective / Review of Systems
Mom at bedside.
Pt hip pain better.
Vital Signs / Physical Exam
Vital Signs
Vital Signs
Temp Pulse Resp BP Pulse Ox
98 F 73 16 121/68 99
10/25/23 07:31 10/25/23 07:31 10/25/23 07:31 10/25/23 07:31 10/25/23 07:31
Physical Exam
Constitutional: No Acute Distress and Comfortable
Cardiovascular: Regular Rate and S1/S2
Pulmonary: Clear
Gastrointestinal: Soft and Non Tender
Neurological: AO x 3
Lines: PICC (RUE: no erythema)
Objective Data
Lab Data
Lab Results
10/25/23 04:47
10/25/23 04:47
ESR 91 mm/hour (0-20) H 10/22/23 13:41
Estimated Creat Clear 94 ml/min 10/25/23 04:47
Lactic Acid 1.1 mmol/L (0.7-2.0) 10/22/23 13:41
Lactic Acid Cancelled 10/22/23 13:41
Total Bilirubin 0.5 mg/dl (0.2-1.3) 10/25/23 04:47
AST 33 U/L (17-59) 10/25/23 04:47
ALT 48 U/L (0-50) 10/25/23 04:47
Alkaline Phosphatase 119 U/L (38-126) 10/25/23 04:47
C-Reactive Protein 153.20 mg/L (0.0-10.00) H 10/22/23 13:41
Most recent labs reviewed.
Micro Results:
10/22/23 17:05 Body Fluid Culture - Preliminary
Joint Fluid Gram negative bacilli
Gram Stain - Preliminary
10/22/23 13:41 Blood Culture - Preliminary
Blood/Venous No Growth in 48 hours- Final report to follow
10/22/23 13:25 Blood Culture - Preliminary
Blood/Venous No Growth in 48 hours- Final report to follow
Cultures from [facility]
10/05/2023 Culture, periprosthetic left knee
Citrobacter koseri
Ampicillin >16 Resistant
Ampicillin/sulbactam 4/2 Susceptible
Aztreonam <=2 Susceptible
Cefazolin <=1 Susceptible
Cefepime <=1 Susceptible
Ceftazidime <=2 Susceptible
Ceftriaxone <=1 Susceptible
Ciprofloxacin <=0.25 Susceptible
Ertapenem <=0.25 Susceptible
Gentamicin <=2 Susceptible
Levofloxacin <=0.5 Susceptible
Meropenem <=0.5 Susceptible
Piperacillin/tazobactam 4/4 Susceptible
Tobramycin <=2 Susceptible
Trimethoprim/sulfa <=0.5/9.5 Susceptible
Imaging:
10/22/2023 Plain film left hip: No findings to suggest acute fracture or dislocation. The bones of the pelvis are intact. There is a total left hip and femur replacement with ORIF. The acetabular component is in the expected location.
Care Review
Plan reviewed with: Physician (Dr. Llamas)
--- NOTE | 2023-10-25 10:18 | CM ---
Addendum entered by Herminia Jose 10/25/23 11:52:
Spoke via phone with patient prior to discharge
Explained that the Virtual teaching call was cancelled; and that [facility] RN will visit him in the home this afternoon for teaching and administration of 1600 dose of antibiotic
Per patient, his parents are providing transport home from the hospital
Original Note:
Plan: Discharge to parent's Home in [place] with IV infusion services from [facility] today
CM spoke with patient this morning via phone; he stated that he agreed to virtual teaching from [facility] RN
Per [facility], dressing changes, alcohol wipes, and prefilled medication syringes will be delivered to his parent's home as directed by 1:00 PM
FOREST spoke with patient's nurse, Diamond Smith to request that she send the patient home with a PICC line extension tube. Diamond stated that she would contact the PICC Team for the extension tube that is needed
FOREST spoke with weekend coordinator and confirmed with [facility] that [facility] referral was not needed for administration support at home.
--- NOTE | 2023-10-25 10:35 | PTCARENOTE ---
notified about critical lab of + . Attending asked me to notify ID. I notified ID, no medication changes. CM was made aware and all parties were in tight communication with each other regarding all the components of DC with IV supplies,
Antibiotic supply delivery and outsourced IV abx /IV administration eduction and the need for the patient to be home before noon. Md aware of the time crunch. IVT called to ask need Picc extension before going home..
--- NOTE | 2023-10-25 10:53 | W.PN.HOSP.TC ---
Addendum entered and electronically signed by Duncan Llamas MD 10/25/23 11:03:
PDMP checked patient got a 15-day supply of oxycodone as needed earlier this month. Currently he is on OxyContin and I will give him 10-day supplies and he will follow-up with his orthopedics in [place].
Original Note:
Today's Communication/Plan
-
monitor vitals
see plan
cw abx per ID recs
home abx set up
pain control
ambulated with PT
dc today
time of discharge 39minutes
Assessment / Plan
Assessment / Plan
General: Well Developed, Well Nourished, No Apparent Distress, Comfortable and Conversant
HEENT: NormoCephalic, Moist mucous membranes and Atraumatic
Respiratory: Clear and Non Labored Respirations
Cardiac: S1/S2 and Regular Rhythm; No Murmur or Rub
GI: Soft, Non Tender, Non Distended and Normal Bowel Sounds
Musculoskeletal: Left knee immobilizer
Neuro: Awake
Psych: Calm and Intact Judgment/Insight
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
In early August, he noted a prosthesis hardware problem at the L knee joint and since he [place] living [place] at that time, he decided to establish care with Orthopedist at [facility] (with Dr Tavera).
He had the L knee prosthesis removed and replaced, but this got infection and spread to the rest of the hardware.
He had a follow up surgery (2 weeks SENIOR RESEARCH FELLOW) to remove and replace the entire hardware/ L femur prosthesis. This unfortunately likely got infected again.
He c/o severe L hip pain and is no longer able to bear weight.
He is living locally with his mom while undergoing rehab.
He denies to fever/chills or other symptoms.
ER contacted his orthopedic surgeon from [place], and was recommended to continue IV antibiotic.
The patient showed desire to be transferred to [place], however [place] indicated no need for transfer at this moment given management would not be different at .
ORTHOPEDIC TEAM AT [facility] CAN BE CONTACTED AT [phone] (MAURIZIO, TAPPER OPERATOR for DR TAVERA)
A/P:
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
# recent complete revision of the L femur prosthesis, 2 weeks SENIOR RESEARCH FELLOW on october 04
# Distant history of Castillo's Sarcoma of the L femur with complete femur/proximal tibia removal done at [facility]
Joint fluid aspirated on 10/21 noted WBC 32k; gram stain without organism however patient was already on Augmentin. ID following. now on cefazolin 2 g IV every 8 hours. Patient is set up for home antibiotics and he will follow-up with his
orthopedic physician in [place].
Follow joint fluid culture growing gram-negative rods. Spoke with infectious disease 10/24 and they are okay with patient being discharged as his previous culture was Citrobacter.
Still awaiting records however Dr. Fontanez from infectious disease spoke with microbiology department at [facility] and received intraoperative culture resulting in Citrobacter koseri
given patient's uncontrolled pain, started oxycontin,tylenol. dilaudid prn for breakthrough. CT scan 10/23 doesnt show any fx. lucency appears to be from spacer. some soft tissue swelling. no signs of abscess patient's pain is. Better with current
regimen. Will discharge him and he will follow-up with his orthopedics at [place] and will get further pain medication recs
Spoke with Dr Fontanez and will treat with IBV abx outpatient and patient will follow-up with orthopedics at [place]
PT/OT. Patient is weightbearing as tolerated with crutches
Spoke with Dr. Tavera 10/22 and he currently does not recommend stitches to be taken out. He wants patient to follow up with him eventually once it settles down with abx for possible another revision.
Constipation
Laxatives
Depression
cw lexapro; hold BID asa since on lovenox since he was taking ASA for DVT ppx after surgery
Anemia
denies any active bleeding; suspect 2/2 recent surgery
good iron stores. monitor
Mild LFT elevation
Monitor
DVT ppx: Lovenox SQ
Full code
Anticipated Discharge: Today
Subjective/Interval History
-
Date of Service: October 25, 2023
has some pain
Objective Data
-
Labs:
Laboratory Results
10/25/23
04:47
WBC 6.0
Hgb 10.0 L
Hct 30.0 L
Plt Count 426 H
Sodium 136
Potassium 4.1
Chloride 103
Carbon Dioxide 24
BUN 13
Creatinine 1.0
Glucose 89
Calcium 9.3
Total Bilirubin 0.5
AST 33
ALT 48
Alkaline Phosphatase 119
Vital Signs:
Vital Signs
Temp Pulse Resp BP Pulse Ox
98 F 73 16 121/68 99
10/25/23 07:31 10/25/23 07:31 10/25/23 07:31 10/25/23 07:31 10/25/23 07:31
I&O
10/24/23 10/25/23 10/26/23
06:59 06:59 06:59
Intake Total 1020 / 1820 1999 / 1999
Output Total 800 / 2100 2319 / 232
Balance 220 / -280 -320 / -320
--- NOTE | 2023-10-25 11:02 | W.DCSUMMARY ---
Discharge Summary
Discharge Data
Date of Admission: 10/22/23
Date of Discharge: 10/25/23
-
Pending Results: Yes
Hospital Course
28-year-old male with past medical history of Castillo sarcoma of the left femur, recent prosthesis hardware infection with replacement came to the hospital with amatory dysfunction and lower extremity pain. Patient recently had a replacement of his
entire hardware of the left femur prosthesis at [facility] where he lives. On admission he had hip aspiration which revealed WBC count of 32,000 concerning for infection. His outpatient orthopedic surgeon from [facility] was contacted and he
recommended to continue IV antibiotics. I also spoke with his surgeon later in the hospitalization and he recommended to continue antibiotics and to have patient follow-up with him for possible another revision. Patient was also seen by infectious
disease here who started him on IV antibiotics. Patient culture from his hospitalization in [facility] showed his wound grew Citrobacter. Infectious disease changed his antibiotics to IV cefazolin. Infectious disease told patient to follow-up
closely with his orthopedic surgeon on discharge and to continue taking IV antibiotics until then. Our culture from hip aspiration started to grow gram-negative rods. Infectious disease felt comfortable discharging patient home on cefazolin.
Patient did ambulate with physical therapy and was deemed safe to go home. With caser in help patient got approved for home antibiotics. For his pain he did require pain management and his pain was manageable on oral medications prior to
discharge. Once patient antibiotics was set up and per infectious disease recommendation patient was discharged home with instructions to follow-up as soon as possible with his orthopedic surgeon at [facility] and also to follow-up with his
primary care provider outpatient.
Discharge Plan
-
Patient Disposition: Home (Routine Discharge)
Discharge Diagnosis/Procedures: We labs left femur hardware infection
Acute left hip pain
Gram-negative rods from hip aspiration
Diet: As tolerated
Activity: As tolerated
Driving Restrictions: As prior to admission
Bathing Restrictions: None
Referrals:
[facility] [Outside] [phone])
Marcos Fontanez, DO [Active] -
Butch Corbin, DO [Non-Admitting Privileges] - in less than 1 week
Prescriptions:
New
cefazolin 10 gram Recon Soln
2 g IV Q8H Qty: 0 0RF
docusate sodium 100 mg Capsule
100 mg PO BID Qty: 0 0RF
polyethylene glycol 3350 [HealthyLax] 17 gram Powder In Packet
17 g PO DAILY Qty: 0 0RF
oxycodone [OxyContin] 15 mg Tablet,Oral Only,Ext.Rel.12 Hr
15 mg PO Q12 Qty: 20 0RF
acetaminophen [Tylenol Extra Strength] 500 mg Tablet
1,000 mg PO TID Qty: 0 0RF
Continued
cyclobenzaprine 10 mg Tablet
10 mg PO BIDPRN PRN (Reason: spasms)
sennosides [senna] 8.6 mg Tablet
17.2 mg PO HSPRN PRN (Reason: constipation)
loperamide 2 mg Capsule
2 mg PO QIDPRN PRN (Reason: diarrhea)
minoxidil 2.5 mg Tablet
2.5 mg PO DAILY
aspirin 81 mg Tablet,Delayed Release (Dr/Ec)
81 mg PO BID
gabapentin 300 mg Capsule
300 mg PO TID
finasteride 1 mg Tablet
1 mg PO DAILY
oxycodone 5 mg Tablet
5 mg PO Q4HPRN PRN (Reason: severe pain)
escitalopram oxalate [Lexapro] 10 mg Tablet
10 mg PO DAILY
Discontinued
acetaminophen [Tylenol] 325 mg Tablet
650 mg PO Q6HPRN PRN (Reason: mild pain)
amoxicillin-pot clavulanate [Augmentin] 875-125 mg Tablet
1 tab PO BID
Patient Comments:
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
Discharge Orders:
Discharge Patient (As Directed); Ordered 10/25/23
Ordered By: Duncan Llamas
Discharge Date and Time
Discharge Date/Time: 10/25/23 12:28
Print Language: SWEDISH
[2023-10-25 11:50] VITALS: BP 124/60
--- NOTE | 2023-10-25 12:33 | PTCARENOTE ---
PT was given DC insttructions at 1145 and signed paperwork. Father here at 12 and was wheeled down at 1215. PT had vitals within four of dc.
--- NOTE | 2023-10-25 12:36 | PTCARENOTE ---
IVT does not have PICC extension in house. CM was immediatly notified and they worked on alternate plans. Please refer to Cm note for updates. On my end, ID ordered 12 noon Ancef to be skipped to ensure that Visiting nurses that arrive at 4 pm
can give him his abx. Pt not happy with the new schedule. DC instructions and pt verbalized an understanding. PT more happy about having a person educate him in person instead of the virtual appointment. PT wheel chaired down to lobby with
volunteer
== END 2023-10-25 12:28 | disposition home health service (06) | DRG 561 ==
LOC: 3 WEST ACU 21:24
PROVIDERS: Physician Assistant; Radiology Vascular & Interventional Radiology; ADMITTING PHYSICIAN Internal Medicine; ATTENDING PHYSICIAN Internal Medicine; EMERGENCY PHYSICIAN Emergency Medicine; OTHER PHYSICIAN Internal Medicine Infectious Disease
PROC: 0S9B3ZX Drainage of Left Hip Joint, Percutaneous Approach, Diagnostic (ICD-10-PCS; 2023-10-22)
PROC: 02HV33Z Insertion of Infusion Device into Superior Vena Cava, Percutaneous Approach (ICD-10-PCS; 2023-10-24)
DX: T84.52XA Infection and inflammatory reaction due to internal left hip prosthesis, initial encounter (principal); D75.839 Thrombocytosis, unspecified; R70.0 Elevated erythrocyte sedimentation rate; F32.A Depression, unspecified; K59.00 Constipation, unspecified; D64.9 Anemia, unspecified; R79.82 Elevated C-reactive protein (CRP); B96.89 Other specified bacterial agents as the cause of diseases classified elsewhere; Y92.9 Unspecified place or not applicable; Y83.1 Surgical operation with implant of artificial internal device as the cause of abnormal reaction of the patient, or of later complication, without mention of misadventure at the time of the procedure; Z96.652 Presence of left artificial knee joint; Z79.82 Long term (current) use of aspirin; Z79.891 Long term (current) use of opiate analgesic; Z85.831 Personal history of malignant neoplasm of soft tissue; Z85.830 Personal history of malignant neoplasm of bone
CPT/HCPCS: 20610; 71045; 73502; 73701; 77002; 80048; 80053; 82607; 82728; 82746; 83540; 83550; 83605; 83735; 84466; 85025; 85652; 86140; 87015; 87040; 87070; 87077; 87186; 87205; 89051; 96365; 96366; 96367; 96375; 96376; 97163; 97166; 99284; Q9967